=== PATIENT | female | born 1990 ===

== ENCOUNTER 2019-02-06 19:12 | Emergency (ER) | payer MEDICAID ==
[2019-02-06 19:43] VITALS: BMI 28.5
[2019-02-06 19:45] VITALS: O2SAT 100
[2019-02-06] MEDS ORDERED: Sodium Chloride 0.9% 1,000 ML IV STA (20:06)
--- NOTE | 2019-02-06 20:09 | ED PDOC ---
HPI: Abdomen Time Seen by Provider: 02/06/19 19:58 Chief Complaint (Nursing): Abdominal Pain Chief Complaint (Provider): Abd pain History Per: Patient History/Exam Limitations: no limitations Onset/Duration Of Symptoms: Days (3 hrs) Additional History Per: Patient Additional Complaint(s): Pt. with epigastic pain. Nausea and nonbloody vomit. No diarrhea, lower abd pa in, weakness, chest pain, dyspnea, new food, drinks, etoh, drugs. Did not take any meds for it. Had similar Wed and went away. No dysuria. Past Medical History Reviewed: Nursing Documentation, Vital Signs Vital Signs: Last Vital Signs Temp 98.3 F 02/06/19 19:43 Pulse 87 02/06/19 19:43 Resp 16 02/06/19 19:43 BP 123/75 02/06/19 19:43 Pulse Ox 100 02/06/19 19:43 - Medical History PMH: No Chronic Diseases - Surgical History Surgical History: - Family History Family History: States: Unknown Family Hx - Living Arrangements Living Arrangements: With Family - Social History Current smoker - smoking cessation education provided: No Alcohol: None Drugs: Denies - Home Medications Home Medications: Ambulatory Orders Medication Instructions Recorded Famotidine [Pepcid] 20 mg PO DAILY PRN #6 tab 02/06/19 - Allergies Allergies/Adverse Reactions: Allergies Allergy/AdvReac Type Severity Reaction Status Date / Time No Known Allergies Allergy Verified 02/06/19 19:43 Review of Systems ROS Statement: Except As Marked, All Systems Reviewed And Found Negative Gastrointestinal: Positive for: Nausea, Vomiting, Abdominal Pain Physical Exam - Reviewed Nursing Documentation Reviewed: Yes Vital Signs Reviewed: Yes - Physical Exam Appears: Positive for: Non-toxic, No Acute Distress Head Exam: Positive for: ATRAUMATIC, NORMAL INSPECTION, NORMOCEPHALIC Skin: Positive for: Normal Color, Warm, DRY Eye Exam: Positive for: EOMI, Normal appearance, PERRL ENT: Positive for: Normal ENT Inspection Neck: Positive for: Normal, Painless ROM Cardiovascular/Chest: Positive for: Regular Rate, Rhythm Respiratory: Positive for: CNT, Normal Breath Sounds Gastrointestinal/Abdominal: Positive for: Soft, Tenderness (epigastric), Other (no tenderness for lower abd, periumbilical, or RUQ.) Back: Positive for: Normal Inspection. Negative for: L CVA Tenderness, R CVA Tenderness Extremity: Positive for: Normal ROM Neurological/Psych: Positive for: Awake, Alert, Normal Tone - Laboratory Results Result Diagrams: 02/06/19 20:50 02/06/19 20:50 Lab Results: ast and alt mild elevation - ECG O2 Sat by Pulse Oximetry: 100 Pulse Ox Interpretation: Normal - Progress ED Course And Treament: 2248: Stable. AAOx3. Pain free. Tolerated PO. Pt. aware of mild elevation of ast and alt. Fu with gi and pcp. Disposition - Clinical Impression Clinical Impression: Abdominal discomfort, Elevated liver enzymes - Patient ED Disposition Is Patient to be Admitted: No Counseled Patient/Family Regarding: Studies Performed, Diagnosis, Need For Followup, Rx Given - Disposition Referrals: Cong Dawkins MD, PhD [Staff Provider] - 02/08/19 [facility] [Outside] - 02/08/19 Disposition: Routine/Home Disposition Time: 22:50 Condition: STABLE Additional Instructions: Return if not better in 3 days. You liver enzymes are elevated. Make sure to follow up with the specialist and the primary care for further evaluation and treatment. Regreso si no mejor en 3 dunn. Las enzimas hepticas estn elevadas. Asegrese de hacer un seguimiento con el especialista y la atencin primaria para carlene evaluacin y tratamiento adicionales. Prescriptions: Famotidine [Pepcid] 20 mg PO DAILY PRN #6 tab PRN Reason: Pain Instructions: Stomach Ache and Stomach Upset, Liver Function Test Print Language: WELSH
[2019-02-06 21:26] LABS: BASO % 0.6 % (0.0-2.0); EOS # 0.1 K/uL (0.0-0.7); EOS % 1.9 % (0.0-4.0); HEMOGLOBIN 10.3 g/dL (12.0-16.0); LYMPH # 2.4 K/uL (1.0-4.3); LYMPH % 35.2 % (20.0-40.0); MEAN CELL VOLUME 83.6 fl (81.0-99.0); MEAN CORPUSCULAR HEMOGLOBIN 27.8 pg (27.0-31.0); MEAN CORPUSCULAR HGB CONC 33.3 g/dL (33.0-37.0); MEAN PLATELET VOLUME 7.4 fl (7.2-11.7); MONO # 0.7 K/uL (0.0-0.8); MONO % 10.8 % (0.0-10.0); NEUT # 3.5 K/uL (1.8-7.0); NEUT % 51.5 % (50.0-75.0); NRBC % 0.2 % (0.0-0.0); RBC 3.69 Mil/uL (3.80-5.20); RED CELL DISTRIBUTION WIDTH 14.1 % (11.5-14.5); WHITE BLOOD COUNT 6.7 K/uL (4.8-10.8)
[2019-02-06 21:39] LABS: ALB/GLOB RATIO 1.5 (1.0-2.1); ALBUMIN 4.1 g/dL (3.5-5.0); ALT/SGPT 116 U/L (9-52); AST/SGOT 182 U/L (14-36); BLOOD UREA NITROGEN 10 mg/dl (7-17); CALCIUM 8.9 mg/dL (8.4-10.2); GFR NON-AFRICAN AMERICAN > 60; LIPASE 76 U/L (23-300)
[2019-02-06 23:08] VITALS: BP 125/64; PULSE 86; RESP 18; TEMP 98.2
== END 2019-02-06 23:05 | disposition home or self-care (01) ==
LOC: H.ER 19:12
DX: R10.13 Epigastric pain (principal); R94.5 Abnormal results of liver function studies
CPT/HCPCS: 80053; 83690; 85025; 96361; 96374; 96375; 99283; J1885; J2405; J7030

== ENCOUNTER 2019-04-02 23:03 | Emergency (ER) | payer MEDICAID ==
[2019-04-02 23:20] VITALS: BMI 28.8
[2019-04-02 23:24] VITALS: RESP 17
[2019-04-02] MEDS ORDERED: Atrop/Hyos/Scop/PhenoB Elixir PO STA (23:38)
[2019-04-02] MEDS ORDERED: Alum-Mag Hydrox-Simethicone Susp (30 mL) PO STA (23:38)
[2019-04-02] MEDS ORDERED: Alum-Mag Hydrox-Simethicone Susp (30 mL) ONE (23:49)
[2019-04-03 00:11] LABS: BASO % 0.5 % (0.0-2.0); EOS # 0.1 K/uL (0.0-0.7); HEMOGLOBIN 10.2 g/dL (12.0-16.0); LYMPH # 2.2 K/uL (1.0-4.3); LYMPH % 37.6 % (20.0-40.0); MEAN CORPUSCULAR HEMOGLOBIN 27.7 pg (27.0-31.0); MEAN CORPUSCULAR HGB CONC 33.4 g/dL (33.0-37.0); MEAN PLATELET VOLUME 7.3 fl (7.2-11.7); MONO # 0.5 K/uL (0.0-0.8); MONO % 9.2 % (0.0-10.0); NEUT % 50.7 % (50.0-75.0); RBC 3.66 Mil/uL (3.80-5.20); RED CELL DISTRIBUTION WIDTH 13.9 % (11.5-14.5); WHITE BLOOD COUNT 5.8 K/uL (4.8-10.8)
[2019-04-03 00:24] LABS: ALB/GLOB RATIO 1.5 (1.0-2.1); ALT/SGPT 21 U/L (9-52); AST/SGOT 26 U/L (14-36); BLOOD UREA NITROGEN 13 mg/dl (7-17); CALCIUM 8.6 mg/dL (8.4-10.2); GFR NON-AFRICAN AMERICAN > 60; LIPASE 57 U/L (23-300)
--- NOTE | 2019-04-03 00:48 | ED PDOC ---
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 patient states pain started at 8pm this evening after eating a quesadilla at 5pm this afternoon. Patient states the pain came on suddenly, in waves. She states the pain improves on it own and increases, "twisting" sensation. Patient denies nausea, vomiting, diarrhea. Patient reports she has had similar pain in the past after eating spicy food. Past Medical History Reviewed: Historical Data, Nursing Documentation, Vital Signs Vital Signs: Last Vital Signs Temp 98.5 F 04/02/19 23:20 Pulse 82 04/02/19 23:20 Resp 17 04/02/19 23:20 BP 128/82 04/02/19 23:20 Pulse Ox 100 04/02/19 23:20 Primary Care Provider: Lesley Srinivasan - Medical History PMH: No Chronic Diseases - Surgical History Surgical History: Other surgeries: tubal ligation - Family History Family History: States: Unknown Family Hx - Living Arrangements Living Arrangements: With Family - Social History Alcohol: None Drugs: Denies - Immunization History Hx Tetanus Toxoid Vaccination: No Hx Influenza Vaccination: No Hx Pneumococcal Vaccination: No - Home Medications Home Medications: Ambulatory Orders Medication Instructions Recorded Famotidine [Pepcid] 20 mg PO DAILY PRN #6 tab 02/06/19 - Allergies Allergies/Adverse Reactions: Allergies Allergy/AdvReac Type Severity Reaction Status Date / Time No Known Allergies Allergy Verified 04/02/19 23:20 Review of Systems ROS Statement: Except As Marked, All Systems Reviewed And Found Negative Constitutional: Negative for: Fever, Chills, Sweats, Weakness, Malaise Cardiovascular: Positive for: Chest Pain (radiating from epigatrim ) Respiratory: Negative for: Cough, SOB with Exertion, Wheezing Gastrointestinal: Positive for: Abdominal Pain. Negative for: Nausea, Vomiting, Diarrhea, Constipation Physical Exam - Reviewed Nursing Documentation Reviewed: Yes Vital Signs Reviewed: Yes - Physical Exam Appears: Positive for: Well, Non-toxic, No Acute Distress Head Exam: Positive for: ATRAUMATIC, NORMAL INSPECTION, NORMOCEPHALIC Skin: Positive for: Normal Color, Warm, DRY Eye Exam: Positive for: Normal appearance, PERRL ENT: Positive for: Normal ENT Inspection Neck: Positive for: Normal, Painless ROM, Supple Cardiovascular/Chest: Positive for: Regular Rate, Rhythm, Chest Non Tender Respiratory: Positive for: CNT, Normal Breath Sounds Gastrointestinal/Abdominal: Positive for: Normal Exam, Bowel Sounds (normoactive ), Soft, Tenderness (epigastric ). Negative for: Distended Back: Positive for: Normal Inspection Extremity: Positive for: Normal ROM Neurological/Psych: Positive for: Awake, Alert, Normal Tone, Oriented - Laboratory Results Result Diagrams: 04/02/19 00:01 04/02/19 00:01 Lab Results: Total Bilirubin 0.1 mg/dl (0.2-1.3) L 04/02/19 00:01 AST 26 U/L (14-36) 04/02/19 00:01 ALT 21 U/L (9-52) 04/02/19 00:01 Alkaline Phosphatase 35 U/L (38-126) L D 04/02/19 00:01 Total Protein 6.6 G/DL (6.3-8.2) 04/02/19 00:01 Albumin 4.0 g/dL (3.5-5.0) 04/02/19 00:01 Globulin 2.6 gm/dL (2.2-3.9) 04/02/19 00:01 Albumin/Globulin Ratio 1.5 (1.0-2.1) 04/02/19 00:01 Lipase 57 U/L (23-300) 04/02/19 00:01 Urine POC: Negative - ECG ECG Rhythm: Positive for: Normal QRS Interpretation Of ECG: seen and interpreted by Dr. Longo. Rate: 76 O2 Sat by Pulse Oximetry: 100 Pulse Ox Interpretation: Normal Medical Decision Making Medical Decision Making: --cbc --cmp --lipase --gi cocktail 01:05 --labs reviewed by me. LFTs improved since last seen on 02/06/2019 --patient has followed up with GI. patient will be given GI referral and information to the [facility]. Patient given education on diet to follow. Patient re-evaluated. Patient states pain has improved. Abdomen palpated, non tender. patient stable to go home. Patient to continue taking pepcid, she states she still has medication left. tolerated PO. return to ED precautions given. Patient states understanding and agrees with plan. Disposition - Clinical Impression Clinical Impression: Gastritis - Patient ED Disposition Is Patient to be Admitted: No Counseled Patient/Family Regarding: Diagnosis, Need For Followup - Disposition Referrals: [facility] [place] [Outside] Cong Dawkins MD, PhD [Staff Provider] - Disposition: Routine/Home Disposition Time: 01:00 Condition: IMPROVED Instructions: Gastritis (DC) Forms: [facility] (Kyrgyz) Print Language: TURKISH - POA Present On Arrival: None
[2019-04-03 01:00] VITALS: PULSE 76
[2019-04-03 01:37] VITALS: BP 125/63; TEMP 98; O2SAT 98
--- NOTE | 2019-04-03 19:14 | CARD ---
APPROVED REPORT Date of service: 04/02/2019 EKG Measurement Heart [id number] <Conclusion> Normal sinus rhythm Normal ECG
== END 2019-04-03 01:26 | disposition home or self-care (01) ==
LOC: H.ER 23:03
DX: K29.70 Gastritis, unspecified, without bleeding (principal)